=== PATIENT | male | born 1965 | race Caucasian/White ===

== ENCOUNTER 2017-04-23 20:29 | Inpatient (IN) | payer OTHER ==
[~2017-04-23] VITALS: Ht 177.8 cm; Wt 63.0 kg
[2017-04-23 20:43] VITALS: BP 226/80; PULSE 48; RESP 26; O2SAT 98
[2017-04-23] MEDS ORDERED: Ondansetron 2 mg/mL 2 mL Inj IVPUSH PRN (20:45)
[2017-04-23] MEDS ORDERED: 0.9% Sodium Chloride 1,000 ML IV ONE ×2 (20:45→22:05)
--- NOTE | 2017-04-23 20:49 | ED.REPORT ---
HPI-Abd Pain M 40 and Over Date of Service Apr 23, 2017 ED Provider: Keith Ratliff MD The pt is a 52 y/o male with a hx of DM Type II, HTN, and pancreatitis ( admitted at [facility] 3 years ago) who presents to the ED via EMS complaining of waxing and waning right lower quadrant abdominal pain that radiates to the epigastrium, onset 2 hours ago. His pain is relieved by lying on his left side. Associated sx include nausea, constipation and one episode of vomiting in the ED. He denies difficulty passing gas, fever, and any other sx at this time. The pt does not take any of the DM and HTN medications prescribed to him due to side effects. He also reports losing consciousness multiple times in the past due to low blood sugar. He has never experienced similar sx before. Code status:Full treatment/Full code Nursing Notes Stated Complaint: ABDOMINAL PAIN Chief Complaint: Male Abdominal Pain Nursing Notes Reviewed: Yes General Time Seen by MD: 20:42 Chief Complaint Abdominal pain Hx Obtained From: Patient, Spouse Arrived By: Ambulance Sudden in Onset?: Yes Onset Occurred: 1 - 4 hours ago Symptom Duration: Waxes and wanes Location: : RLQ Quality: Painful Radiation: : Epigastric Severity: Current: Moderate Severity: Maximum: Moderate Recent Healthcare: No recent doctor visit Past Medical History Past Medical History Notes: Code status: Full treatment/Full code Is not presently established with primary care. Past Medical History Pancreatitis Reports: Diabetes mellitus, Hypertension Past Surgical History none reported Smoking History Never Smoker Social History Alcohol Use: Denies alcohol use Drug Use: THC (everyday) Other Social History: Good social support, Ambulatory Status Independent Review of Systems Denies: difficulty passing gas Constitutional: Denies: Fever GI: Reports: Abdominal pain, Constipation, Nausea, Vomiting (one episode) Complete sys rev & neg: except as marked. Physical Exam Initial Vital Signs Vital Signs (First) Date Time Temp Pulse Resp B/P Pulse Ox O2 Delivery O2 Flow Rate FiO2 04/23/17 20:43 36.4 48 26 226/80 98 Room Air Initial VS: Reviewed Head / Eyes: Atraumatic, Normocephalic Neck: Supple, Non-tender, Full range of motion Extremities: Vascular intact, Neuro intact, No swelling, No tenderness Skin: Warm, Dry, No cyanosis Neurologic: Alert, Oriented, Nonfocal General/Constitutional: Awake, Alert, Cooperative Distress / Hydration: Positive: Distress mild Respiratory / Chest: Atraumatic, Breath sounds NL, Breath sounds = bilat, No respiratory distress, No rales, No rhonchi, No wheezing Cardiovascular: Regular rhythm, Heart sounds NL, No murmurs, No rubs Heart Rate / Rhythm: Positive: Bradycardia Abdomen: Atraumatic, Soft, No guarding, No rebound, BS normoactive Tenderness/Guarding/Rebound: Positive: Tender RLQ... (Mild) Back: Atraumatic, Full range of motion, Painless range of motion Interpretation & Diagnostics Lab Results Interpretation Result Diagram: 04/23/17 2100 04/23/17 2100 Test 04/23/17 21:00 04/23/17 22:13 White Blood Count 10.2th/mm3 (3.8-10.1) Red Blood Count 5.35mil/mm3 (4.40-5.80) Hemoglobin 15.5g/dL (13.8-17.2) Hematocrit 43.4% (41.0-50.0) Mean Corpuscular Volume 81.1fL (81-100) Mean Corpuscular Hemoglobin 29.0pg (27.0-35.0) Mean Corpuscular Hemoglobin Concent 35.7% (32.0-37.0) Red Cell Distribution Width 12.1% (12.3-15.4) Platelet Count 198bil/L (150-400) Neutrophils (%) (Auto) 69.7% (40-74) Lymphocytes (%) (Auto) 21.9% (14-46) Monocytes (%) (Auto) 7.0% (4-12) Eosinophils (%) (Auto) 1.0% (0-5) Basophils (%) (Auto) 0.2% (0-3) Sodium Level 136mEq/L (134-144) Potassium Level 3.8mEq/L (3.5-5.2) Chloride Level 93mEq/L (97-108) Carbon Dioxide Level 21mmol/L (18-29) Blood Urea Nitrogen 17mg/dL (6-24) Creatinine 0.59mg/dL (0.76-1.27) Estimat Glomerular Filtration Rate 155mL/min (>59) Glucose Level 391mg/dL (60-99) Calcium Level 9.8mg/dL (8.5-10.1) Magnesium Level 1.7mg/dL (1.6-2.6) Total Bilirubin 0.3mg/dL (0.0-1.2) Aspartate Amino Transf (AST/SGOT) 18U/L (0-50) Alanine Aminotransferase (ALT/SGPT) 18U/L (0-44) Alkaline Phosphatase 83U/L (25-150) Total Protein 8.3g/dL (6.4-8.4) Albumin 4.6g/dL (3.4-5.0) Lipase 92U/L (13-60) Hold Berrios Top Tube Received (Received) Urine Color Straw (YELLOW) Urine Appearance Clear (CLEAR,HAZY) Urine pH 7.0 (5.0-8.0) Urine Specific [place] 1.026 (1.003-1.035) Urine Protein Tracemg/dL (NEG,TRACE) Urine Glucose (UA) >1000mg/dL (NEGATIVE) Urine Ketones 40mg/dL (NEGATIVE) Urine Occult Blood Negative (NEGATIVE) Urine Nitrite Negative (NEGATIVE) Urine Bilirubin Negative (NEGATIVE) Urine Urobilinogen Normalmg/dL (NORMAL) Urine Leukocyte Esterase Negative (NEGATIVE) Urine RBC 0-2/hpf (0-2) Urine WBC 0-5/hpf (0-5) Urine Epithelial Cells None/hpf (NONE-MOD) Urine Crystals None seen (NONE SEEN) Urine Bacteria None/hpf (NONE-FEW) Urine Hyaline Casts None/lpf (NONE) Urine Granular Casts None seen (NONE SEEN) Urine Waxy Casts None seen (NONE SEEN) Urine Red Blood Cell Casts None seen (NONE SEEN) Urine White Blood Cell Casts None seen (NONE SEEN) Urine Mucus None seen (None Seen) Urine Trichomonas None seen (NONE SEEN) Urine Yeast None (NONE SEEN) Urinalysis Comment None Urine Culture Reflexed Not indicated ECG Interpretation ECG Interpretation: Sinus bradycardia. Rate 49. LVH No acute changes Time: 20:59 Interpreted by: ED physician CT Abd / Pelvis Interpretation Impression: Complex multilobulated cystic lesion noted in the left upper quadrant arising from the distal pancreas measuring approximately 7.3 x 11.5 x 6cm dimension compatible with cystic neoplasm, psudocyst, and /or abscess. No ectopic gas. Small loculated complicated fluid noted along the left anterior pararenal fascia. Other findings above. Signed by Dr. Chaya Terrazas 04/23/17 23:03 Re-Eval/Medical Decision Med Decision/Clinical Course 52-year-old male with a history of pancreatitis and uncontrolled diabetes. Presenting with left upper quadrant and epigastric abdominal pain and vomiting. Had a moderate elevation in his lipase or imaging shows very large pancreatic mass. Was given IV fluids and Dilaudid and ondansetron with good control of his symptoms. Thing is to have some epigastric tenderness. Also noted to be quite hypertensive on arrival with some mild bradycardia. ECG was significant only for mild bradycardia. Given a small dose (20 mg) of IV labetalol. His blood pressure came down some, but has remained quite elevated. This is felt likely to be chronic as the patient reports that he does not like to take blood pressure medications. Will be admitted to the hospitalist service with GI consultation for further evaluation. Time of Eval: 21:27 Patient Status: Mild relief Re-Evaluation/Progress Note: Rechecked pt. His pain has improved but is still waxing and waning. He no longer has nausea. Time of Eval: 23:29 Re-Evaluation/Progress Note: Rechecked pt. Discussed CT results, diagnosis, plan to consult GI, and admit the pt. He understands and agrees with the plan. All questions answered. Consultation #1: Referral / Consult Name: Keith Beaver MD Requested Call at: 23:33 Call Returned at: 23:35 Upholstery Cutter: Will see patient Note: Dr. Beaver will consult with the pt tomorrow. Consultation #2: Referral / Consult Name: Alberto Kumar MD Consulted With: Hospitalist Requested Call at: 23:41 Call Returned at: 23:47 Upholstery Cutter: Will see patient, Agrees with eval, Agrees with plan, Accepts admit Counseled Regarding: Diagnosis, Lab results, Need for admission Discharge & Departure Primary Impression: Generalized abdominal pain Additional Impressions: Pancreatitis Chronicity: acute Pancreatitis type: unspecified pancreatitis type Acute pancreatitis complication: unspecified Qualified Code: K85.90 - Acute pancreatitis without necrosis or infection, unspecified Pancreatic mass Diabetes type 2, uncontrolled Diabetes mellitus complication status: with unspecified complications Diabetes mellitus technician terminal and repeater insulin use: without retirement use Qualified Code : E11.8 - Type 2 diabetes mellitus with unspecified complications Hypertension associated with diabetes Disposition: ADMITTED TO HOSPITAL Vital Signs - All Vital Signs Date Time Temp Pulse Resp B/P Pulse Ox O2 Delivery O2 Flow Rate FiO2 04/23/17 23:22 50 18 203/76 98 04/23/17 22:39 46 208/118 04/23/17 22:22 45 18 183/65 98 04/23/17 22:12 68 207/78 04/23/17 22:02 80 18 215/79 98 04/23/17 20:43 36.4 48 26 226/80 98 Room Air Scribe Attestation Portions of this note were transcribed by Alyssa Mark. I,, personally performed the history,physical exam and medical decision-making;I reviewed and confirmed the accuracy of the information in the transcribed note. Signed by Madison Hunteribamol. 04/23/17 Keith Ratliff MD Apr 23, 2017 20:49 Alyssa Mark Apr 23, 2017 20:52
[2017-04-23] MEDS: HYDROmorphone 1 mg/mL Inj IVPUSH PRN ×2 (21:11→21:47)
[2017-04-23 21:17] LABS: BASOPHILS % (AUTO) 0.2 % (0-3); Mean Corpuscular Volume 81.1 fL (81-100); NEUTROPHILS % (AUTO) 69.7 % (40-74); Platelet Count 198 bil/L (150-400)
[2017-04-23 21:47] LABS: Magnesium 1.7 mg/dL (1.6-2.6)
[2017-04-23 22:02] VITALS: BP 215/79; PULSE 80; RESP 18; O2SAT 98
[2017-04-23] MEDS ORDERED: Labetalol 5 mg/mL 20 mL Inj IVPUSH ONE (22:05)
[2017-04-23 22:12] VITALS: BP 207/78; PULSE 68
[2017-04-23 22:22] VITALS: BP 183/65; PULSE 45; RESP 18; O2SAT 98
[2017-04-23 22:28] LABS: APPEARANCE,URINE CLEAR (CLEAR,HAZY); COLOR,URINE STRAW (YELLOW)
[2017-04-23 22:29] LABS: OCCULT BLOOD,URINE NEGATIVE (NEGATIVE); UROBILINOGEN,URINE NORMAL (NORMAL)
[2017-04-23 22:39] VITALS: BP 208/118; PULSE 46
[2017-04-23 23:22] VITALS: BP 203/76; PULSE 50; RESP 18; O2SAT 98
[2017-04-24] VITALS (12 sets, daily range): BP systolic 137–181; BP diastolic 48–85; PULSE 67–90; RESP 16–18; O2SAT 98–100
[2017-04-24] MEDS ORDERED: Alum-Mag Hydrox-Simeth 30 mL Suspension PO PRN
[2017-04-24] MEDS ORDERED: Polyethylene Glycol (PEG) 17 Gm Powder PO PRN
[2017-04-24] MEDS ORDERED: Ondansetron 2 mg/mL 2 mL Inj IVPUSH PRN
--- NOTE | 2017-04-24 00:37 | PCM.HPMED ---
Subjective Date of Service Apr 24, 2017 Primary Provider: Admitting Physician: Alberto Kumar MD Primary Care Physician: [place] Attending Physician: Alberto Kumar MD Admit Status: From the Emergency Department Chief Complaint: Abdominal pain History of Present Illness: Lei Young is a pleasant 52-year-old male with past medical history significant for type II diabetes insulin using, hypertension, and pancreatitis who presented to the ED via EMS with complaints of left lower quadrant abdominal pain that migrated to his epigastric region about 3-4 hours ago. The pain got better if he laid on his left side or passed gas. His last bowel movement was prior to the pain. He was nauseated and vomited once in the ED. He also complains of chronic fatigue and inability to gain weight. He denies any fever/ chills, diarrhea, shortness of breath, chest pain, palpitations, headache, vision or hearing changes. He is not in pain or nauseated at this time. He was hospitalized approximately 3 years ago for pancreatitis due to alcohol. He reports an 80 pound weight loss since that time, with an inability to recover his weight. Of note, the patient has been off all medication for quite some time as he did not like the side effects. He says his blood pressures usually around 140-150, and that his blood sugars hover in the 200s. He has no PCP. Review of Systems: Comprehensive review of systems was conducted with the patient and found to be negative except as noted above in HPI. Allergies Coded Allergies: No Known Allergies (Unverified , 04/24/17) Home Medications None PMH Diabetes mellitus type II, insulin using Hypertension Pancreatitis Surgical History None Family History Father: Diabetes mellitus, CHF Mother: Breast cancer Social History Hx Alcohol Use: No (quit 3 years ago) Hx Substance Use: Yes (occasional marijuana) Hx Tobacco Use: No Smoking Status: Former Smoker (quit 22 years ago) Living Arrangement: with Family Exam Vital Signs Vital Sign - Last Date Time Temp Pulse Resp B/P Pulse Ox O2 Delivery O2 Flow Rate FiO2 04/24/17 00:07 80 18 178/84 98 04/23/17 20:43 36.4 Room Air Intake and Output 04/23/17 04/23/17 04/24/17 Cumulative From/Thru 15:00 23:00 07:00 04/23/17 20:43 - 9/1/17 21:13 Intake Total 1000 ml 1000 ml Balance 1000 ml 1000 ml Intake IV Total 1000 ml 1000 ml Exam General: Thin, almost cachectic appearing male in no acute distress, interacting appropriately. HEENT: Normocephalic, atraumatic. Some temporal wasting. External ears without defect. Pupils equal, round, and reactive to light and accommodation. Oropharynx free of erythema and cobble stoning with dry mucosa. Neck: Supple with full range of motion. No jugular venous distension or thyromegaly. Cardiovascular: Regular rate and rhythm with no murmurs, rubs, or gallops appreciated Pulmonary: Clear to auscultation bilaterally with no crackles, wheezes, or rhonchi. Normal respiratory effort with no use of accessory muscles. Abdomen: Bowel tones present. Soft, nontender at this time, nondistended. No hepatosplenomegaly or masses appreciated. No rebound or guarding. Extremities: No clubbing, cyanosis, edema appreciated. Skin: Normal temperature, turgor, and texture; no rash, ulcers, or subcutaneous nodules appreciated. Neurological: Cranial nerves grossly intact. Normal muscle strength, tone, and bulk. Reflexes, coordination, and sensory function within normal limits. No known gait impairment. Psychiatric: Normal mood and affect. Alert and oriented to person, place, and time. Lab and Diagnostics Result Diagram: 04/23/17 2100 04/23/17 2100 X-Rays, CTs and MRIs CT abdomen 04/23/2017 Impression: Complex multilobulated cystic lesion noted in the left upper quadrant arising from the distal pancreas measuring approximately 7.3 x 11.5 x 6cm dimension compatible with cystic neoplasm, psudocyst, and /or abscess. No ectopic gas. Small loculated complicated fluid noted along the left anterior pararenal fascia. Other findings above. Signed by Dr. Chaya Terrazas 04/23/17 23:03 12-lead ECG ECG Interpretation: Sinus bradycardia. Rate 49. LVH No acute changes Time: 20:59 Interpreted by: ED physician Assessment & Plan Lei Young is a pleasant 52-year-old male with past medical history significant for type II diabetes insulin using, hypertension, and pancreatitis who presented to the ED via EMS with complaints of left lower quadrant abdominal pain that migrated to his epigastric region about 3-4 hours ago on 04/23/2017. Epigastric abdominal pain, present on admission. Acute. Ongoing. - Patient reports 3-4 hours lower abdominal pain that migrated to epigastric region; is not present currently - Possibly mass effect as pancreatitis, GERD/PUD, diverticulosis, mesenteric ischemia, cholecystitis all unlikely due to history/labs/imaging - CT revealed cystic lesion in the tail of pancreas as above - Dr. Beaver of Gastroenterology consulted from ED; will see patient in the morning - IVF at 100ml/hr as patient is NPO, quite dry appearing despite 2L in ED - 0.5-1 mg IV Dilaudid q4 for pain as needed - NPO for now Hypertensive Urgency, present on admission. Acute. Ongoing. - Likely multifactorial with pain response, history, stopping his medications - Patient stopped his lisinopril many months ago due to cough; reports pressures in the 140-150 region - Patient is severely hyper sensitive in the 190-200 systolics on admission without end organ damage as of yet - IV Labetalol ordered once as patient is NPO; consider drip if he does not drop adequately - Goal BP is > 150, < 170 at this time, do not want to decrease too quickly to ensure perfusion Diabetes mellitus type II insulin using, present on admission. Uncontrolled. - Patient reports sugars are around 200 at home but stopped taking his Lantus due to hypoglycemic events - Blood sugar on admission is 394 - A1c ordered - Diabetic diet depending on GI plans (continue NPO for now) - High correctional scale ordered for now - Consider restarting Lantus at a lower regimen than before as he has lost 80+ lbs PRN Medications - Acetaminophen as needed for mild pain/fever/headache - Bowel regimen as needed - Antiemetic as needed Patient status: Patient is admitted under inpatient status with expected length of stay greater than 2 midnights due to severity of presenting symptoms, risk of adverse event, and complexity of treatment plan. Pain Evaluation: Adequate Pain Control VTE Prophylaxis: Sub-Q Heparin (Unfractionated) Resuscitation Status: CPR: Attempt Resuscitation Attending Statement The patient was seen and examined together with Dr. Marroquin on 04/23 and I agree with the history, exam and plan as outlined in the note above. Bo Marroquin DO Apr 24, 2017 00:37 Alberto Kumar MD Apr 24, 2017 04:50
[2017-04-24] MEDS ORDERED: Glucose 40% Oral Gel 15 Gm Tube PO PRN (00:55)
[2017-04-24] MEDS ORDERED: Labetalol 5 mg/mL 20 mL Inj IVPUSH ONE (00:55)
[2017-04-24] MEDS ORDERED: 0.9% Sodium Chloride 1,000 ML IV SCH (01:00)
[2017-04-24] MEDS ORDERED: HYDROmorphone 0.5 mg/0.5 mL iSecure Syringe IVPUSH PRN (01:05)
[2017-04-24] MEDS: Heparin 5,000 Unit/mL Inj SUBQ SCH ×3 (01:23→16:58)
[2017-04-24] MEDS ORDERED: Dextrose 10% 250 ML IV PRN (02:25)
--- NOTE | 2017-04-24 04:19 | NUR ---
Admit Patient admitted to room at 0030. Patient alert x 3, denies any pain, denies nausea. Patient no longer takes any medications. Patient has lost over 80 lb. Patient checks blood sugar sometimes but does not take any insulin.
[2017-04-24 06:14] LABS: BASOPHILS % (AUTO) 0.1 % (0-3); EOSINOPHILS % (AUTO) 0 % (0-5); MONOCYTES % (AUTO) 3.8 % (4-12); Mean Corpuscular Hemoglobin 29.5 pg (27.0-35.0); Mean Corpuscular Volume 82.2 fL (81-100); NEUTROPHILS % (AUTO) 84.9 % (40-74); Platelet Count 133 bil/L (150-400)
--- NOTE | 2017-04-24 07:44 | DRSVH ---
PROCEDURE: CT ABDOMEN AND PELVIS WITH CONTRAST ([id number]) INDICATIONS: abd pain and vomiting, elevated lipase TECHNIQUE: After the administration of intravenous contrast, 5 mm thick sections acquired from the diaphragm to the symphysis. 5 mm coronal and sagittal reformats were acquired. For radiation dose reduction, the following was used: automated exposure control, adjustment of mA and/or kV according to patient siz e. COMPARISON: None. FINDINGS: Image quality: Excellent. ABDOMEN: Lung bases: Lung bases are clear. Heart size is normal. Solid organs: Liver and spleen are normal in size and enhancement. Gallbladder is unremarkable. Bi liary system is non dilated. No adrenal nodules. Kidneys demonstrate normal size and enhancement, w ithout hydronephrosis. Peritoneum and bowel: Bowel loops demonstrate normal wall thickness and caliber. No free fluid or a ir. Moderate stool is present particularly within the right and transverse colon. There is a heterogeneous lobulated mass, appearing both cystic and solid, identified posterior to the proximal stomach and anterior to the spleen and extending below the level of the pancreas. Mass is i n direct approximation to the gastric wall. The mid pancreatic body and tail are not visualized secon april to overlying mass. There is no gross pancreatic ductal dilation. In addition, there is a nodular mass measuring 19 mm AP by 24 mm transverse by 94 mm craniocaudal within the anterior perinephric fa t. There is no visualized inflammatory change. Nodes and vessels: No retroperitoneal or mesenteric adenopathy by size criteria. Aorta and inferior vena cava are normal in size. Perigastric and splenic hilar varices are noted. Portions of the sple mirna vein are not well visualized possibly secondary to occlusion or compression by mass lesion. Miscellaneous: No ventral hernias. PELVIS: Genitourinary: Bladder wall thickness is normal. Miscellaneous: No inguinal hernias or adenopathy. Bones: No suspicious bony lesions. No vertebral body compression fractures. IMPRESSION: 1. 19 AP by 24 mm transverse 94 mm craniocaudal solid and cystic mass within the left upper quadrant, appearing to arise from the distal pancreas. While this could be related to an abscess, lack of surr ounding inflammatory change raises significant suspicion for cystic pancreatic neoplasm. In addition, the satellite focus of nodularity as described above additionally raises concerns for potential neop lastic disease. Dictated by: Elle Henry M.D. on 04/24/2017 at 7:34 Approved by: Elle Henry M.D. on 04/24/2017 at 7:42
[2017-04-24] MEDS: Insulin LISPRO 300 Unit/3 mL Inj SUBQ SCH ×4 (08:26→22:54)
[2017-04-24] MEDS: Insulin GLARgine 100 Unit/mL Syringe SUBQ SCH ×2 (08:30→08:52)
--- NOTE | 2017-04-24 13:11 | CONS ---
[address] [address] CONSULTATION REPORT PATIENT: MARI RIVERA : 1965 MR#: [id number] ADMIT: 04/23/2017 JOB ID: [id number] DATE OF SERVICE: 04/24/2017 GASTROENTEROLOGY CONSULTATION: REQUESTING PROVIDER: Keith Ratliff MD and Marlo Marroquin REASON FOR CONSULTATION: Abnormal imaging. 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 Since then, he has remained completely abstinent from alcohol. He, however, has experienced a progressive weight loss. He has lost about 30 pounds prior to his episode of pancreatitis and then another 50 after that time. He typically has fairly regular bowel movements but in order to try to gain weight he was altering his diet, eating higher protein fare, and it sounds like he may have become moderately constipated just prior to admission. He had a couple of very small pellet-like firm bowel movements yesterday prior to coming in but he had developed a severe left lower abdominal pain that ultimately did radiate up into the left upper region. However, by about 4:00 this morning he was able to pass a substantial amount of flatus and had considerable relief of his pain and it has since completely passed on and he is basically at his baseline status at the moment. He additionally was nauseated and some emesis. This additionally provided overall relief with respect to his presentation. In the ED he was found to have a slight elevation in his lipase at 92. His liver tests were normal. He had a slight leukocytosis but no left shift. A CAT scan was accomplished and revealed a large cystic and solid mass lesion in the region of the tail of the pancreas. ALLERGIES: No known drug allergies. MEDICATIONS: None. PAST MEDICAL HISTORY: Type 2 diabetes, hypertension, alcohol-induced pancreatitis, severe degenerative disc disease. PAST SURGICAL HISTORY: None. FAMILY HISTORY: His mother had breast cancer. SOCIAL HISTORY: No alcohol x2 years. He is an ex-smoker, quitting 22 years ago. He takes occasional cannabis to help control back pain. REVIEW OF SYSTEMS: The patient otherwise denies any significant upper GI complaints. He does however have chronic early satiety. Normally bowel movements are like clockwork, formed regular stools daily. There has been no report of any GI bleeding. PHYSICAL EXAMINATION: Blood pressures are down in the 145/85 range, pulse 86, breathing 18, temperature 37.2, 98% on room air. The patient was alert, oriented, appropriate, cooperative, conversational with family present at the bedside. Skin: Warm and dry. Tattoo right shoulder. Lungs: Clear bilaterally, with good respiratory effort. Heart: Regular. No peripheral pitting edema. Abdomen: Soft. I did not appreciate any distention. No tenderness at present. LABORATORY: LFTs normal. Glucose is still elevated at 348 this morning. Creatinine 0.45, sodium 138, potassium 4.3, chloride 99, bicarb 19, BUN 13. Hematocrit 40.7, white count 8.0, platelets now 133. Urinalysis: Apart from the presence of excess glucose and some ketones otherwise unremarkable. IMAGING: CAT scan as above. I have personally reviewed the images and the lesion definitely abuts the stomach. ASSESSMENT AND RECOMMENDATIONS: This is a 52-year-old male with ED presentation for abdominal pain found to have a cystic and solid large cystic lesion associated with the tail of the pancreas. My suspicion is the pain symptoms are completely unrelated to the imaging findings. I suspect he became a little constipated with his dietary manipulations. His pain was in essence relief by nausea, vomiting, and ultimately by flatus. He is at his baseline at the moment. I am concerned primarily about the prospect of a mucinous cystadenoma. Based on the size of this lesion and the irregular solid components this would be much higher risk for transformation into malignancy. MRCP is ordered today to provide further clarification. I have requested the CT scans from his nine-day hospitalization at [facility] from two years ago. It will be interesting to determine whether there was any cystic focus in and around the region of the tail of the pancreas even back then. I will contact Dr. Marcelo for surgical consultation. My inclination is that this should be addressed surgically, and I do not feel that endoscopic ultrasound examination for FNA to be entirely necessary with this particular lesion, but I would defer to Dr. Marcelo on that score. If EUS with FNA is requested it would have to wait until this coming week when Dr. Benedict returns to work. After MRCP is accomplished I think the patient should be able to have diet advanced as tolerated and if blood sugars and blood pressure are under acceptable control from the hospitalist service he should be ultimately allowed discharge home to continue with outpatient evaluation/workup/intervention. As part of his preoperative workup we could certainly pursue EGD and colonoscopy at the discretion of Dr. Espnaa at any time. COMMENT: This is a no-charge physician visit. Today is the Sabbath. Please do not submit a physician charge for this particular note.
--- NOTE | 2017-04-24 16:32 | PCM.PNMED ---
Subjective Date of Service Apr 24, 2017 Subjective abdominal pain resolved. blood glucose uncontrolled . BP improved now Exam Vital Signs Vital Sign - Last Date Time Temp Pulse Resp B/P Pulse Ox O2 Delivery O2 Flow Rate FiO2 04/24/17 15:20 73 04/24/17 12:53 37.1 18 137/78 98 Room Air Intake and Output 04/23/17 04/23/17 04/24/17 Cumulative From/Thru 15:00 23:00 07:00 04/23/17 20:43 - 04/24/17 06:50 Intake Total 1000 ml 457 ml 1457 ml Balance 1000 ml 457 ml 1457 ml IV Total 1000 ml 457 ml 1457 ml Exam General: Thin, almost cachectic appearing male in no acute distress, interacting appropriately. HEENT: Normocephalic, atraumatic. Some temporal wasting. External ears without defect. Pupils equal, round, and reactive to light and accommodation. Oropharynx free of erythema and cobble stoning with dry mucosa. Neck: Supple with full range of motion. No jugular venous distension or thyromegaly. Cardiovascular: Regular rate and rhythm with no murmurs, rubs, or gallops appreciated Pulmonary: Clear to auscultation bilaterally with no crackles, wheezes, or rhonchi. Normal respiratory effort with no use of accessory muscles. Abdomen: Bowel tones present. Soft, nontender at this time, nondistended. No hepatosplenomegaly or masses appreciated. No rebound or guarding. Extremities: No clubbing, cyanosis, edema appreciated. Skin: Normal temperature, turgor, and texture; no rash, ulcers, or subcutaneous nodules appreciated. Neurological: Cranial nerves grossly intact. Normal muscle strength, tone, and bulk. Reflexes, coordination, and sensory function within normal limits. No known gait impairment. Psychiatric: Normal mood and affect. Alert and oriented to person, place, and time. IVs and Medications Medications Reviewed: Medications were reviewed in detail Lab and Diagnostics Result Diagram: 04/24/17 0550 04/24/17 0550 X-Rays, CTs and MRIs PROCEDURE: CT ABDOMEN AND PELVIS WITH CONTRAST ([id number]) INDICATIONS: abd pain and vomiting, elevated lipase IMPRESSION: 1. 19 AP by 24 mm transverse 94 mm craniocaudal solid and cystic mass within the left upper quadrant, appearing to arise from the distal pancreas. While this could be related to an abscess, lack of surrounding inflammatory change raises significant suspicion for cystic pancreatic neoplasm. In addition, the satellite focus of nodularity as described above additionally raises concerns for potential neoplastic disease. Dictated by: Elle Henry M.D. on 04/24/2017 at 7:34 12-lead ECG ECG Interpretation: Sinus bradycardia. Rate 49. LVH No acute changes Time: 20:59 Interpreted by: ED physician Assessment & Plan Lei Young is a pleasant 52-year-old male with past medical history significant for type II diabetes insulin using, hypertension, and pancreatitis who presented to the ED via EMS with complaints of left lower quadrant abdominal pain that migrated to his epigastric region about 3-4 hours ago on 04/23/2017. # Epigastric abdominal pain, present on admission. Acute. resolved - Patient reports 3-4 hours lower abdominal pain that migrated to epigastric region; is not present currently.probably due to pancreatic mass - Possibly mass effect as pancreatitis, GERD/PUD, diverticulosis, mesenteric ischemia, cholecystitis all unlikely due to history/labs/imaging - CT revealed cystic lesion in the tail of pancreas as above - Dr. Beaver of Gastroenterology and Surgery Dr Marcelo consulted # Pancreatic solid and cystic mass -CT as above -MRCP pending -Surgery Dr Marcelo consulted .outpatient workup -defer ordering ca 19-9 to GI and surgeon ,mass not clearly solid and may not need it per GI # Hypertensive Urgency, present on admission. Acute. Ongoing. - Likely multifactorial with pain response, history, stopping his medications - Patient stopped his lisinopril many months ago due to cough; reports pressures in the 140-150 region - Patient initially severely hypertensive in the 190-200 systolics on admission without end organ damage as of yet -will consider ACEI up on discharge if BP high - Goal BP is > 150, < 170 at this time, do not want to decrease too quickly to ensure perfusion # Diabetes mellitus type II insulin using, present on admission. Uncontrolled. - Patient reports sugars are around 200 at home but stopped taking his Lantus due to hypoglycemic events - Blood sugar on admission is 394 - A1c ordered - Diabetic diet depending on GI plans (continue NPO for now) - High correctional scale ordered for now - restarted Lantus at 20U daily ,a lower regimen than before as he has lost 80 + lbs PRN Medications - Acetaminophen as needed for mild pain/fever/headache - Bowel regimen as needed - Antiemetic as needed Patient status: Patient is admitted under inpatient status with expected length of stay greater than 2 midnights due to severity of presenting symptoms, risk of adverse event, and complexity of treatment plan. possible discharge tomorrow if glucose is controlled VTE Prophylaxis: Sub-Q Heparin (Unfractionated) Resuscitation Status: CPR: Attempt Resuscitation Saurav Rivers MD Apr 24, 2017 16:32 Saurav Rivers MD Apr 24, 2017 16:32
--- NOTE | 2017-04-24 16:44 | NUR ---
NUTRITION ASSESSMENT: ASSESS: 52 YO male with a history of alcohol-induced pancreatitis. He has abstained from alcohol for several years. However, he has experienced significant weight loss, per his report, 80 pounds over 3 years. He typically has fairly regular bowel movements but in order to try to gain weight he was altering his diet, eating higher protein fare and may have become moderately constipated just prior to admission. He had a couple of very small pellet-like firm bowel movements yesterday prior to coming in but he had developed a severe left lower abdominal pain that ultimately did radiate up into the left upper region. He additionally was nauseated and some emesis. In the ED he was found to have a slight elevation in his lipase at 92. His liver tests were normal. He had a slight leukocytosis but no left shift. A CAT scan was accomplished and revealed a large cystic and solid mass lesion in the region of the tail of the pancreas. I tried several times this afternoon to verify his weight loss; however, he was not in his room. PMHx: Type 2 diabetes, hypertension, alcohol-induced pancreatitis, severe degenerative disc disease. DIET: General. PO intake not yet recorded. LABS: Reviewed. Cr 0.45, Glu 34, A1c pending. MEDICATIONS: Reviewed. NUTRITION FOCUSED PHYSICAL ASSESSMENT: GI symptoms / stool: No BM reported today.Kane: 19 Skin Integrity: No issues reported. ANTHROPOMETRICS: Current Wt: 63.0 kg BMI: BMI 19.0 kg/m2. IBW: 73 kg (86% IBW) ESTIMATED NEEDS (POSSIBLE CANCER CACHEXIA): Calories: 2205 - 2520 kcal (35 - 40 kcal / kg BW) Protein 95 - 126 g protein (1.5 - 2.0 g / kg BW) NUTRITION DIAGNOSIS: 1)Malnutrition of unknown designation and of unknown etiology, as evidenced by self-reported weight loss of 80 pounds over a 3-year period. 2) Increased nutrient needs related to potential cancer cachexia, again evidenced by his self-reported weight loss. INTERVENTION: 1) Will send Glucerna on lunch and dinner trays. 2)Will connect with the patient on Wednesday regarding his likely excessive carbohydrate restriction and will verify the weight loss. MONITOR/EVALUATE: PO intake, diagnosis, labs, weight, nutritional status. Follow up per high nutrition risk guidelines.
--- NOTE | 2017-04-24 17:56 | NUR ---
Ativan Patient had MRCP ordered. Patient went down to MRI suite in wheelchair. Upon getting situated for MRI patient became extremely anxious and MRI notified nurse patient would benefit from anxiety medication. MD notified. One time dose of 1 mg IV Ativan was ordered. Nurse walked to MRI suite and administered medication to patient. Patient was able to complete MPCP.
--- NOTE | 2017-04-24 20:09 | CONS ---
[address] [address] CONSULTATION REPORT PATIENT: MARI RIVERA : 1965 MR#: [id number] ADMIT: 04/23/2017 JOB ID: [id number] DATE OF SERVICE: 04/24/2017 REASON FOR CONSULTATION: Pancreatic mass. HISTORY OF PRESENT ILLNESS: I am asked to evaluate the patient at the request of Dr. Keith Beaver from Gastroenterology. The patient is 52 years old and has a history of significant alcohol-induced pancreatitis who presented to the emergency department with a complaint of 3-4 hours of epigastric abdominal pain. Part of his evaluation included a CT scan of the abdomen and pelvis with contrast which showed a 1.9 x 2.4 x 9.4 cm cystic mass with some solid component in the distal pancreas as well as a small amount of satellite nodularity. Dr. Beaver was consulted and asked me to see the patient as well. He had a significant episode of alcohol-induced pancreatitis in 2014. He was admitted to [facility] in [place]. We have a report from a CT scan at that time which showed pancreatic edema but no cystic neoplasm or mass. Leading up to that event, he began losing some weight and since then he has lost a total of 80 pounds unintentionally. He thinks that his weight has pretty much stabilized recently. He has regular bowel movements and he does not describe them as oily, difficult to flush, or particularly foul smelling. He has never been jaundiced. He has been completely abstinent from alcohol since his severe pancreatitis in 2014. PAST MEDICAL HISTORY: Type 2 diabetes mellitus, uncontrolled. Hypertension, alcohol-induced pancreatitis, degenerative disc disease. PAST SURGICAL HISTORY: None. MEDICATIONS: None. ALLERGIES: No known drug allergies. SOCIAL HISTORY: Former smoker, quit 22 years ago. He uses occasional cannabis. Denies alcohol use. FAMILY HISTORY: No family history of GI malignancy, no family history of pancreatitis. Mother had breast cancer. REVIEW OF SYSTEMS: A 10-point review of systems is otherwise negative except as described in history of present illness. He does not complain of any blood in the stool, no hematemesis. He does complain of early satiety. PHYSICAL EXAMINATION: Body mass index 19.9, temperature 37.1, pulse 73, blood pressure 137/78, saturation 98% on room air. General: He is sitting up in bed, in no acute distress. HEENT: Sclerae are anicteric. Mucous membranes are moist. Neck: No jugular venous distention. No lymphadenopathy. Chest is clear. Heart: Regular rate and rhythm. No murmurs. Abdomen is soft, nondistended, nontender. There are no palpable masses. There are no hernias. Extremities: No edema. Neuro: No deficits. Psychiatric: Affect is appropriate. LABORATORIES: White count is 8.0, hematocrit 40.7, platelets 133. Creatinine 0.45. Glucose 348. Albumin 4.3, lipase 92. IMAGING: As described in history of present illness. MRCP has been obtained but has not been read yet. ASSESSMENT AND PLAN: A 52-year-old diabetic man with a history of severe pancreatitis in 2014, now with a 9.4 cm mostly cystic complex mass involving the tail of his pancreas. We have had a long discussion tonight about the differential diagnosis. Main considerations are pancreatic pseudocyst versus a mucinous cystic neoplasm such as cystadenoma. Pathophysiology of both disorders was discussed with the patient, as well as pancreatic malignancy. I recommend checking some tumor markers including a CA19-9 and CEA level. I would like to personally review his images with our radiologist, which probably cannot happen until Wednesday. Depending on the outcome of that discussion, I think that he should be considered for endoscopic ultrasound with possible aspiration of the cystic lesion to send fluid for amylase and CEA levels. If it were rich in amylase and low is CEA, it would be presumably a pseudocyst and might be amenable to endoscopic treatment. If it were low in amylase and rich in CEA, it would be a mucinous neoplasm and surgical resection would need to be considered. He and his family are not sure if endoscopic ultrasound is recommended, if they might want to have that done in [place] where endoscopic cyst gastrostomy could be performed by Gastroenterology if appropriate. They will give that some thought over the weekend. He also seems to think that if there were thought to be a mucinous neoplasm that required resection, he might want that to be done in [place] as well. I will follow loosely over the weekend and then once images are able to be reviewed personally with Radiology, we will get some better direction early next week. Thanks for this interesting consultation.
--- NOTE | 2017-04-24 21:58 | DRSVH ---
PROCEDURE: MR ABDOMEN MRCP INDICATIONS: mixed cystic and solid lesion assoc c tail of panc TECHNIQUE: Coronal HASTE through the abdomen, axial 2-D FLASH in- and [id number], and breath-hold T2 FSE with fat saturation through the biliary system and pancreas. Oblique coronal and axial thin-slice HASTE, radial thick-slab HASTE centered on the extrahepatic bile ducts. Intravenous secretin: Not requested. COMPARISON: None. FINDINGS: Image quality: Excellent. Pancreas and biliary system: Intra- and extra-hepatic biliary ducts are non dilated. There is a lob ulated predominantly hyperintense T2 structure within the left upper abdomen extending from the mid l evel of the stomach to the anterior kidney. Fluid level is present. There is mass effect upon the st omach. It measures approximately 90 mm AP by 62 mm transverse by 9 the millimeters craniocaudal. It o bscures the mid and distal portion of the pancreas. There is no pancreatic ductal dilation identified . In addition, there is an adjacent similar, although smaller focus of T2 hyperintensity measuring ap proximately 20 mm AP by 23 mm transverse. This focus appears somewhat more heterogeneous in signal. P ancreatic duct is normal in caliber, without developmental anomalies. There is no gross pancreatic e princess within the uncinate process, head or midbody. Distal portion is obscured. Gallbladder is unrema rkable. Other solid organs: Liver and spleen are normal in size. No adrenal nodules. Both kidneys are norm al in size, without hydronephrosis. Nodes and vessels: No retroperitoneal or mesenteric adenopathy by size criteria. Aorta and inferior vena cava are normal in size. Bowel and peritoneum: Unenhanced bowel loops are normal in caliber. No free fluid. Lung bases: No basal pleural effusions. Heart size is normal. Bones and soft tissues: No ventral hernias. Bone marrow is of normal overall signal. IMPRESSION: 1. Prominent hyperintense lobulated structure, with fluid level, spanning the left upper quadrant fro m the stomach to the anterior left kidney. The central portion of the lesion appears to arise from th e pancreas with nonvisualization of the mid pancreatic body and tail. There is no pancreatic ductal d ilation. An adjacent satellite lesion is also noted. Given presence of fluid level, appearance can be service liaison representative of a large pancreatic pseudocyst. However, necrotic cystic pancreatic neoplasm shoul d also be considered as part of the differential. Dictated by: Elle Henry, M.D. on 04/24/2017 at 21:53 Transcribed by: ELISSA on 04/24/2017 at 21:58 Approved by: Elle Henry M.D. on 04/27/2017 at 12:18
[2017-04-25 00:06] VITALS: BP 165/78; PULSE 78; RESP 18; O2SAT 97
[2017-04-25] MEDS: Heparin 5,000 Unit/mL Inj SUBQ SCH ×2 (00:07→07:37)
[2017-04-25 03:52] VITALS: BP 159/82; PULSE 70; RESP 18; O2SAT 97
[2017-04-25 06:31] VITALS: PULSE 70
[2017-04-25] MEDS: Insulin GLARgine 100 Unit/mL Syringe SUBQ SCH ×3 (07:44→09:47)
[2017-04-25] MEDS: Insulin LISPRO 300 Unit/3 mL Inj SUBQ SCH (07:44)
[2017-04-25 08:49] VITALS: PULSE 70
[2017-04-25 09:33] VITALS: BP 153/84; PULSE 63; RESP 18; O2SAT 96
--- NOTE | 2017-04-25 11:29 | PCM.DIMED ---
Discharge Instructions Date of Service Apr 25, 2017 Dates of Hospitalization Apr 23, 2017 at 23:54 Discharge Diagnosis Discharge Diagnosis # Epigastric abdominal pain, present on admission. Acute. resolved likely due to pancreatic mass # Pancreatic solid and cystic mass # Hypertensive Urgency, present on admission. Acute. Ongoing. # Diabetes mellitus type II insulin using, present on admission. Uncontrolled. Medication Instructions Additional med instructions You are started on Lantus 24 units daily and lisipro sliding scale.Also started on lisinopril 20mg daily . Test Results Test Results MRCP 04/24/17 Minimally hyperintense lobulated structure spanning the left upper quadrant from the stomach to the anterior left kidney. The central portion of the lesion appears to arise from the pancreas with nonvisualization of the mid pancreatic body and tail. There is no pancreatic ductal dilation. An adjacent satellite lesion is also noted. Finding remains highly suspicious for a cystic pancreatic neoplasm. Diet Discharge Diet: Heart Healthy, Diabetic Activity Discharge Activity: Limited until seen by PCP Call your provider Call your provider for: Fever or Chills, Shortness of breath, Bleeding, Chest pain, Vomitting, Excessive diarrhea, Weakness (unilateral) Patient Instructions Patient Instructions You were hospitalized due to abdominal pain. Pain seems to be due to pancreatic mass. Workup revealed pancreatic mass. Please follow-up with Dr. Osmani Marcelo in 1 week for outpatient workup and surgery.You may discuss with him and transfer your care to [facility] . You also had uncontrolled diabetes. I have restarted you on Lantus 24 units daily in the morning and lispro short- acting insulin sliding scale 3 times a day with meals. Please check your blood glucose 3 times a day and keep log. Please get a new PCP and follow-up for further insulin dose adjustment.You also had uncontrolled hypertension. I have restarted you on lisinopril 20 mg daily. Please check blood pressure at least once daily.You may follow-up with [facility] as new PCP if you can find a PCP in [place] soon. Follow-up with PCP in: 1 week Provider: Osmani Marcelo MD Follow-up in: 1 week Saurav Rviers MD Apr 25, 2017 11:29
[2017-04-25] MEDS ORDERED: LISI-567 PO (11:30)
[2017-04-25] MEDS ORDERED: INSU100V7 SUBQ (11:30)
[2017-04-25] MEDS ORDERED: INSLIS SUBQ (11:30)
--- NOTE | 2017-04-25 11:52 | PCM.DC.MED ---
Discharge Summary Date of Service Apr 25, 2017 Dates of Hospitalization Date of Hospital Admission Apr 23, 2017 at 23:54 Date of Discharge: Apr 25, 2017 Providers: Admitting Physician: Alberto uKmar MD Primary Care Physician: Sharla Attending Physician: Alberto Kumar MD Diagnosis at Time of Discharge Diagnosis at Time of Discharge # Epigastric abdominal pain, present on admission. Acute. resolved likely due to pancreatic mass # Pancreatic solid and cystic mass # Hypertensive Urgency, present on admission. Acute. Ongoing. # Diabetes mellitus type II insulin using, present on admission. Uncontrolled. Consultations surgery Dr Osmani Marcelo GI Dr Beaver Procedures XRay, CTs & MRIs PROCEDURE: CT ABDOMEN AND PELVIS WITH CONTRAST ([id number]) INDICATIONS: abd pain and vomiting, elevated lipase IMPRESSION: 1. 19 AP by 24 mm transverse 94 mm craniocaudal solid and cystic mass within the left upper quadrant, appearing to arise from the distal pancreas. While this could be related to an abscess, lack of surrounding inflammatory change raises significant suspicion for cystic pancreatic neoplasm. In addition, the satellite focus of nodularity as described above additionally raises concerns for potential neoplastic disease. Dictated by: Elle Henry M.D. on 04/24/2017 at 7:34 PROCEDURE: MR ABDOMEN MRCP INDICATIONS: mixed cystic and solid lesion assoc c tail of panc TECHNIQUE: Coronal HASTE through the abdomen, axial 2-D FLASH in- and [id number], and breath-hold T2 FSE with fat saturation through the biliary system and pancreas. Oblique coronal and axial thin-slice HASTE, radial thick-slab HASTE centered on the extrahepatic bile ducts. Intravenous secretin: Not requested. COMPARISON: None. FINDINGS: Image quality: Excellent. Pancreas and biliary system: Intra- and extra-hepatic biliary ducts are non dilated. There is a lobulated predominantly hyperintense T2 structure within the left upper abdomen extending from the mid level of the stomach to the anterior kidney. There is mass effect upon the stomach. It measures approximately 90 mm AP by 62 mm transverse by 9 the millimeters craniocaudal. It obscures the mid and distal portion of the pancreas. There is no pancreatic ductal dilation identified. In addition, there is an adjacent similar, although smaller focus of T2 hyperintensity measuring approximately 20 mm AP by 23 mm transverse. This focus appears somewhat more heterogeneous in signal. Pancreatic duct is normal in caliber, without developmental anomalies. Gallbladder is unremarkable. Other solid organs: Liver and spleen are normal in size. No adrenal nodules. Both kidneys are normal in size, without hydronephrosis. Nodes and vessels: No retroperitoneal or mesenteric adenopathy by size criteria. Aorta and inferior vena cava are normal in size. Bowel and peritoneum: Unenhanced bowel loops are normal in caliber. No free fluid. Lung bases: No basal pleural effusions. Heart size is normal. Bones and soft tissues: No ventral hernias. Bone marrow is of normal overall signal. IMPRESSION: 1. Minimally hyperintense lobulated structure spanning the left upper quadrant from the stomach to the anterior left kidney. The central portion of the lesion appears to arise from the pancreas with nonvisualization of the mid pancreatic body and tail. There is no pancreatic ductal dilation. An adjacent satellite lesion is also noted. Finding remains highly suspicious for a cystic pancreatic neoplasm. Dictated by: Elle Henry M.D. on 04/24/2017 at 21:53 ECG 12 Lead ECG Interpretation: Sinus bradycardia. Rate 49. LVH No acute changes Time: 20:59 Interpreted by: ED physician Brief History per HPI Lei Young is a pleasant 52-year-old male with past medical history significant for type II diabetes insulin using, hypertension, and pancreatitis who presented to the ED via EMS with complaints of left lower quadrant abdominal pain that migrated to his epigastric region about 3-4 hours ago. The pain got better if he laid on his left side or passed gas. His last bowel movement was prior to the pain. He was nauseated and vomited once in the ED. He also complains of chronic fatigue and inability to gain weight. He denies any fever/ chills, diarrhea, shortness of breath, chest pain, palpitations, headache, vision or hearing changes. He is not in pain or nauseated at this time. He was hospitalized approximately 3 years ago for pancreatitis due to alcohol. He reports an 80 pound weight loss since that time, with an inability to recover his weight. Of note, the patient has been off all medication for quite some time as he did not like the side effects. He says his blood pressures usually around 140-150, and that his blood sugars hover in the 200s. He has no PCP. Hospital Course Lei Young is a pleasant 52-year-old male with past medical history significant for type II diabetes insulin using, hypertension, and pancreatitis who presented to the ED via EMS with complaints of left lower quadrant abdominal pain that migrated to his epigastric region about 3-4 hours ago on 04/23/2017. # Epigastric abdominal pain, present on admission. Acute. resolved - Patient reports 3-4 hours lower abdominal pain that migrated to epigastric region; is not present currently.probably due to pancreatic mass - CT revealed cystic lesion in the tail of pancreas as above - Dr. Beaver of Gastroenterology and Surgery Dr Marcelo consulted # Pancreatic solid and cystic mass -CT as above -MRCP as above -.mass likely to be malignant .ca 19-9 and CEA sent . -Surgery Dr Marcelo consulted .DR Marcelo will discuss MRCP and CT findings with radiologist on Wednesday to see if he would benefit from EUS with needle aspirate to check fluid vs direct surgery . Patient needs to follow-up with him in the next few days.patient also thinking of transferring his care to [facility]. # Hypertensive Urgency, present on admission. Acute. Ongoing. - Likely multifactorial with pain response, history, stopping his medications - Patient stopped his lisinopril many months ago due to cough; reports pressures in the 140-150 region - Patient initially severely hypertensive in the 190-200 systolics on admission without end organ damage as of yet Restarted lisinopril 20 mg by mouth daily. Patient says it was tolerable. May switch to another class if any side effects -May need to add antihypertensives if blood pressure is high out patient # Diabetes mellitus type II insulin using, present on admission. Uncontrolled. - Patient reports sugars are around 200 at home but stopped taking his Lantus due to hypoglycemic events - Blood sugar on admission is 394 - A1c pending - restarted Lantus at 24U daily ,a lower regimen than before as he has lost 80 + lbs. continue insulin sliding scale. -Advised to follow-up with PCP for further insulin adjustment. Patient has no PCP. He plans to go to [facility]. Advised to call [facility] residency clinic if he cannot get PCP soon Discharged home Condition on discharge stable Exam Vital Signs (Last) Date Time Temp Pulse Resp B/P Pulse Ox O2 Delivery O2 Flow Rate FiO2 04/25/17 09:33 37.1 63 18 153/84 96 Room Air Exam General: Thin, almost cachectic appearing male in no acute distress, interacting appropriately. HEENT: Normocephalic, atraumatic. Some temporal wasting. External ears without defect. Pupils equal, round, and reactive to light and accommodation. Oropharynx free of erythema and cobble stoning with dry mucosa. Neck: Supple with full range of motion. No jugular venous distension or thyromegaly. Cardiovascular: Regular rate and rhythm with no murmurs, rubs, or gallops appreciated Pulmonary: Clear to auscultation bilaterally with no crackles, wheezes, or rhonchi. Normal respiratory effort with no use of accessory muscles. Abdomen: Bowel tones present. Soft, nontender at this time, nondistended. No hepatosplenomegaly or masses appreciated. No rebound or guarding. Extremities: No clubbing, cyanosis, edema appreciated. Skin: Normal temperature, turgor, and texture; no rash, ulcers, or subcutaneous nodules appreciated. Neurological: Cranial nerves grossly intact. Normal muscle strength, tone, and bulk. Reflexes, coordination, and sensory function within normal limits. No known gait impairment. Psychiatric: Normal mood and affect. Alert and oriented to person, place, and time. Test 04/23/17 21:00 04/23/17 22:13 04/24/17 05:50 04/24/17 19:21 Magnesium Level 1.7mg/dL (1.6-2.6) Lipase 92U/L (13-60) Hold Berrios Top Tube Received (Received) Urine Color Straw (YELLOW) Urine Appearance Clear (CLEAR,HAZY) Urine pH 7.0 (5.0-8.0) Urine Specific [place] 1.026 (1.003-1.035) Urine Protein Tracemg/dL (NEG,TRACE) Urine Glucose (UA) >1000mg/dL (NEGATIVE) Urine Ketones 40mg/dL (NEGATIVE) Urine Occult Blood Negative (NEGATIVE) Urine Nitrite Negative (NEGATIVE) Urine Bilirubin Negative (NEGATIVE) Urine Urobilinogen Normalmg/dL (NORMAL) Urine Leukocyte Esterase Negative (NEGATIVE) Urine RBC 0-2/hpf (0-2) Urine WBC 0-5/hpf (0-5) Urine Epithelial Cells None/hpf (NONE-MOD) Urine Crystals None seen (NONE SEEN) Urine Bacteria None/hpf (NONE-FEW) Urine Hyaline Casts None/lpf (NONE) Urine Granular Casts None seen (NONE SEEN) Urine Waxy Casts None seen (NONE SEEN) Urine Red Blood Cell Casts None seen (NONE SEEN) Urine White Blood Cell Casts None seen (NONE SEEN) Urine Mucus None seen (None Seen) Urine Trichomonas None seen (NONE SEEN) Urine Yeast None (NONE SEEN) Urinalysis Comment None Urine Culture Reflexed Not indicated White Blood Count 8.0th/mm3 (3.8-10.1) Red Blood Count 4.95mil/mm3 (4.40-5.80) Hemoglobin 14.6g/dL (13.8-17.2) Hematocrit 40.7% (41.0-50.0) Mean Corpuscular Volume 82.2fL (81-100) Mean Corpuscular Hemoglobin 29.5pg (27.0-35.0) Mean Corpuscular Hemoglobin Concent 35.9% (32.0-37.0) Red Cell Distribution Width 12.3% (12.3-15.4) Platelet Count 133bil/L (150-400) Neutrophils (%) (Auto) 84.9% (40-74) Lymphocytes (%) (Auto) 10.9% (14-46) Monocytes (%) (Auto) 3.8% (4-12) Eosinophils (%) (Auto) 0% (0-5) Basophils (%) (Auto) 0.1% (0-3) Sodium Level 138mEq/L (134-144) Potassium Level 4.3mEq/L (3.5-5.2) Chloride Level 99mEq/L (97-108) Carbon Dioxide Level 19mmol/L (18-29) Blood Urea Nitrogen 13mg/dL (6-24) Creatinine 0.45mg/dL (0.76-1.27) Estimat Glomerular Filtration Rate 211mL/min (>59) Glucose Level 348mg/dL (60-99) Calcium Level 9.0mg/dL (8.5-10.1) Total Bilirubin 0.5mg/dL (0.0-1.2) Aspartate Amino Transf (AST/SGOT) 18U/L (0-50) Alanine Aminotransferase (ALT/SGPT) 22U/L (0-44) Alkaline Phosphatase 81U/L (25-150) Total Protein 7.2g/dL (6.4-8.4) Albumin 4.3g/dL (3.4-5.0) Discharge Medications Discharge Medications Insulin Glargine (Lantus U100 Insulin Vial) 100 Unit/Ml Vial 24 UNIT SUBQ DAILY Prescribed by: JIMENEZ DEJESUS MD Insulin Human Lispro (HumaLOG U100 Insulin Vial) 100 Unit/Ml Unit 0 UNIT SUBQ WMHS Check blood sugars before meals and at bedtime. Use correction factor only before meals. Blood Sugar Lispro Correction: <151, 0 units; 151-175, 1 unit; 176-200, 2 units; 201-225, 3 units; 226-250, 4 units; 251-275, 5 units; 276-300 , 6 units; 301-325, 7 units; 326-350, 8 units; 351-375, 9 units; 376-400, 10 units; >400, 12 units. Prescribed by: JIMENEZ DEJESUS MD Lisinopril (Lisinopril) 20 Mg Tablet 20 MG PO DAILY Prescribed by: JIMENEZ DEJESUS MD Additional med instructions You are started on Lantus 24 units daily and lisipro sliding scale.Also started on lisinopril 20mg daily . Followup Plan Disposition: Home Discharge Diet: Heart Healthy, Diabetic Discharge Activity: Limited until seen by PCP Patient Instructions You were hospitalized due to abdominal pain. Pain seems to be due to pancreatic mass. Workup revealed pancreatic mass. Please follow-up with Dr. Osmani Marcelo in 1 week for outpatient workup and surgery.You may discuss with him and transfer your care to [facility] . You also had uncontrolled diabetes. I have restarted you on Lantus 24 units daily in the morning and lispro short- acting insulin sliding scale 3 times a day with meals. Please check your blood glucose 3 times a day and keep log. Please get a new PCP and follow-up for further insulin dose adjustment.You also had uncontrolled hypertension. I have restarted you on lisinopril 20 mg daily. Please check blood pressure at least once daily.You may follow-up with [facility] residency clinic as new PCP if you can find a PCP in [place] soon. Follow-up with PCP in: 1 week Provider: Osmani Marcelo MD Follow-up in: 1 week Time spent 40 minutes counseling patient and coordinating discharge. copies to: Osmani Marcelo MD; Keith Beaver MD, Melaku MD Apr 25, 2017 11:52
--- NOTE | 2017-04-25 11:57 | NUR ---
Social Work: Initial Assessment / Discharge Data: See initial assessment. Patient is a 52 year old male who was admitted on 04/23/17 for abd pain, pancreatic mass, and hypertension per H&P. Patient's insurance is [employer]. No PCP is listed. EMR reviewed. CRISTOBAL met with patient to discuss discharge planning. SW role explained. Patient lives in [place] with spouse, mom, and three children. Patient denies having a DPOA or AD. Patient has declined to received AD resources at this time. Patient is I at baseline with ADLs and care needs. Patient provides his own transportation needs via POV. Patient denies hx of home health services or SNF. 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 Upon discharge, patient states that transportation will be provided by spouse. SW provided patient will a discharge planning checklist booklet and encouraged to call with any questions/concerns. Phone number provided. Patient was discussed in morning rounds. Recommendation was made by MD for patient to follow up with a PCP. SW has offered patient assistance with obtaining PCP. Patient informed SW that he stays close to [facility] and plan is to visit clinic on Friday 04/27 to obtain a PCP. Patient states that he does not need further assistance with obtaining PCP. Patient has no additional needs at this time. Assessment: Patient will discharge home with spouse. Plan: Patient will discharge home today with spouse. Patient has been deemed medically stable for discharge per MD. Spouse will provide transportation via POV. Patient will visit [facility] on Friday 04/27 for obtain PCP. Patient has no additional needs at this time. JOHN Valle Addendum: 04/25/17 at 1210 by GARRETT COTTO Amended: Links added.
--- NOTE | 2017-04-25 12:17 | NUR ---
DISCHARGE Patient discharged home at 1210, ambulated off floor accompanied by family members and RN. IV discontinued intact, all belongings returned. Vitals stable, denies pain and in no apparent distress. All instructions for follow up with Dr Marcelo and establishing with a new PCP reviewed with patient who reports understanding. All instructions for medications, new prescriptions, diet and activity reviewed with patient and who report understanding.
== END 2017-04-25 12:10 | disposition home or self-care (01) | DRG 392 ==
LOC: SED 20:29 → EDBD 20:29 → MPC 23:54
PROVIDERS: ADMIT Hospitalist; ATTEND Hospitalist
DX: R10.13 Epigastric pain (principal); R64 Cachexia; Z68.1 Body mass index [BMI] 19.9 or less, adult; E11.65 Type 2 diabetes mellitus with hyperglycemia; I10 Essential (primary) hypertension; F12.90 Cannabis use, unspecified, uncomplicated; I16.0 Hypertensive urgency; Z87.891 Personal history of nicotine dependence; Z91.14 Patient's other noncompliance with medication regimen; Z79.4 Long term (current) use of insulin